=== PATIENT | male | born 1965 | race Two or more races ===

== ENCOUNTER 2017-09-06 18:38 | Emergency (ER) | payer BC ==
[~2017-09-06] VITALS: Ht 177.8 cm; Wt 111.1 kg
[2017-09-06 18:44] VITALS: Ht 177.8 cm; Wt 111.1 kg
[2017-09-06 19:25] LABS: UA SPECIFIC GRAVITY >=1.030 (1.005-1.035); microscopic required? YES; urine erythrocyte 3+ (NEGATIVE)
[2017-09-06 19:32] LABS: BASOPHIL % 0.6 % (0-2); PLATELET COUNT 192 x10^3mcL (130-400); RED CELL DISTRIBUTION WIDTH 13.2 % (11.5-14.5)
[2017-09-06 19:45] LABS: CALCIUM 9.3 mg/dL (8.5-10.1); CARBON DIOXIDE 24.3 mmol/L (21-32); CHLORIDE SERUM 107 mmol/L (98-107); CREATININE SERUM 1.1 mg/dL (0.7-1.3); GFR1 > 60 mL/min; GLUCOSE SERUM 111 mg/dL (74-106); SODIUM SERUM 145 mmol/L (136-145)
[2017-09-06 19:52] LABS: ALBUMIN 4.6 g/dL (3.4-5.0); ALKALINE PHOSPHATASE 81 U/L (46-116); ALT/SGPT 63 U/L (16-63); AST/SGOT 32 U/L (15-37); BILIRUBIN TOTAL 1.49 mg/dL (0.20-1.00); LIPASE 119 IU/L (73-393); TOTAL PROTEIN, SERUM 7.1 g/dL (6.4-8.2)
[2017-09-06 20:49] VITALS: BP 154/106
== END 2017-09-06 20:49 | disposition home or self-care (01) ==
LOC: ED 18:38
PROVIDERS: Emergency Medicine
DX: N20.0 Calculus of kidney (principal); Z90.49 Acquired absence of other specified parts of digestive tract
CPT/HCPCS: J1885; J2405; J7030